=== PATIENT | male | born 1980 | race African-American/Black ===

== ENCOUNTER 2017-01-10 21:16 | Emergency (ER) | payer SELFPAY ==
[~2017-01-10] VITALS: Ht 167.6 cm; Wt 79.4 kg
[~2017-01-10 21:16] MED LIST: CIPR500T PO; CYCL-331 PO
[2017-01-10 21:37] VITALS: BP 137/87
--- NOTE | 2017-01-10 21:58 | PHYS DOC ---
Past History Past Medical History: Asthma Past Surgical History: No Surgical History Smoking: Cigarettes, Less than 1pk/day Alcohol Use: None Drug Use: None Adult General Chief Complaint Chief Complaint: DENTAL PROBLEM HPI HPI 36-year-old male presenting to the emergency department with right-sided " dental pain". He reports the pain and been present for the past 3 days. It is a sharp pain associated with mild swelling of the cheek. It is nonradiating moderate and without alleviating factors. Review of systems is negative for difficulty swallowing stridor fevers neck pain or chest pain. All other review of systems is negative unless otherwise noted in history of present illness. Review of Systems Review of Systems SEE ABOVE. Allergies Allergies Allergies Coded Allergies Type Severity Reaction Last Updated Verified No Known Drug Allergies 11/27/13 No Physical Exam Physical Exam Constitutional: Well developed, well nourished, no acute distress, non-toxic appearance. [] HENT: Normocephalic, atraumatic, bilateral external ears normal, oropharynx moist, no oral exudates, nose normal. Patient has poor dentition in the top back part of his right teeth. No periapical abscesses present. Mild swelling of the cheek. Unable to express drainage from Stensen's duct. The facial soft tissue is not warm to touch and is without erythema. No swelling of the tongue stridor. Patient is resting comfortably able to swallow secretions. No CHEF SAUCIER present. Normal range of motion of the neck. Eyes: PERRLA, EOMI, conjunctiva normal, no discharge. Neck: Normal range of motion, no tenderness, supple, no stridor. [] Cardiovascular:Heart rate regular rhythm, no murmur Lungs & Thorax: Bilateral breath sounds clear to auscultation [] Abdomen: Bowel sounds normal, soft, no tenderness, no masses, no pulsatile masses. Skin: Warm, dry, no erythema, no rash. [] Back: No tenderness, no CVA tenderness. [] Extremities: No tenderness, no cyanosis, no clubbing, ROM intact, no edema. Neurologic: Alert and oriented X 3, normal motor function, normal sensory function, no focal deficits noted. [] Psychologic: Affect normal, judgement normal, mood normal. EKG EKG [] Radiology/Procedures Radiology/Procedures [] Course & Med Decision Making Course & Med Decision Making Pertinent Labs and Imaging studies reviewed. (See chart for details) [] 36-year-old male presenting to the emergency department with tooth pain and cheek swelling. Differential diagnosis included sialolithiasis versus dental pain. Vital signs afebrile. Patient is well-appearing. He is provided oral pain medications and I instructed him to use sialogogues such as lemon candies. He was provided oral pain medications and subsequently discharged home to follow- up with his PCP and a dentist. They were to return if their symptoms worsened or if they were concerned for any reason. [id number] discharge instructions and return precautions were given. Patient's questions were answered to their satisfaction. Patient is comfortable plan. Dragon Disclaimer Dragon Disclaimer This chart was dictated in whole or in part using Voice Recognition software in a busy, high-work load, and often noisy Emergency Department environment. It may contain unintended and wholly unrecognized errors or omissions. Departure Departure: Impression: Primary Impression: Pain, dental Disposition: 01 HOME, SELF-CARE Condition: STABLE Referrals: PCP,NO (PCP) Patient Instructions: Dental Pain Additional Instructions: Thank you for allowing us to participate in your care today. Followup with your primary care physician in 3 days if your symptoms do not improve. If you do not have a primary care provider you can ask for a list of our primary care providers. Return to the emergency department you have any new or concerning findings. This should be evaluated by the primary care physician and any necessary consulting services for continued management within a few days after discharge. Return to emergency room if you have any new or concerning symptoms including but not limited to fever, chills, nausea, vomiting, intractable pain, any new rashes, chest pain, shortness of air, uncontrolled bleeding, difficulty breathing, and/or vision loss. You may have been prescribed medication that can change in your level of thinking and ability to operate machinery. These medications include hydrocodone and Ativan. Also, Benadryl has been known to do this as well. Be sure to check with your pharmacist and ask if the medications you've prescribed can affect your level of consciousness. I recommend not operating heavy machinery or driving while on medication such as these. Scripts Morphine Sulfate (MORPHINE SULFATE) 15 Mg Tablet 1 TAB PO PRN Q8HRS Y for SEVERE PAIN, #4 TAB Be careful as this medication may make you sleepy or drowsy. Do not drive or operate heavy machinery on this medication. Be sure to ask the pharmacist about other side effects that can exist such as constipation. Prov: SHAWN BROOKS MD 01/10/17 SHAWN BROOKS MD January 10, 2017 21:58
[2017-01-10] MEDS ORDERED: MORP15TA PO (22:07)
== END 2017-01-10 22:14 | disposition home or self-care (01) ==
LOC: ER 21:18
DX: K08.89 Other specified disorders of teeth and supporting structures (principal); J45.909 Unspecified asthma, uncomplicated; F17.210 Nicotine dependence, cigarettes, uncomplicated
CPT/HCPCS: 99283

== ENCOUNTER 2017-01-17 22:30 | Emergency (ER) | payer SELFPAY ==
[~2017-01-17] VITALS: Ht 167.6 cm; Wt 79.4 kg
[~2017-01-17 22:30] MED LIST changes: +MORP15TA PO
[2017-01-17 22:41] VITALS: BP 147/87
--- NOTE | 2017-01-17 22:57 | PHYS DOC ---
Past History Past Medical History: Asthma, Seizure Past Surgical History: No Surgical History Smoking: Cigarettes, Less than 1pk/day Alcohol Use: Occasionally Drug Use: None Adult General Chief Complaint Chief Complaint: LOWER BACK PAIN OR INJURY HPI HPI 36-year-old gentleman presenting with low back pain after lifting heavy objects at work. His pain is sharp on the right side radiating down his right leg. It is moderate and without alleviating factors. He denies fecal or urinary incontinence. He denies perineal paresthesias or leg weakness. Review of systems is negative for fevers chills nausea vomiting diarrhea. All other review of systems is negative unless otherwise noted in history of present illness. Review of Systems Review of Systems SEE ABOVE. Allergies Allergies Allergies Coded Allergies Type Severity Reaction Last Updated Verified No Known Drug Allergies 11/27/13 No Physical Exam Physical Exam Constitutional: Well developed, well nourished, no acute distress, non-toxic appearance. [] HENT: Normocephalic, atraumatic, bilateral external ears normal, oropharynx moist, no oral exudates, nose normal. [] Eyes: PERRLA, EOMI, conjunctiva normal, no discharge. [] Neck: Normal range of motion, no tenderness, supple, no stridor. [] Cardiovascular:Heart rate regular rhythm, no murmur [] Lungs & Thorax: Bilateral breath sounds clear to auscultation [] Abdomen: Bowel sounds normal, soft, no tenderness, no masses, no pulsatile masses. [] Skin: Warm, dry, no erythema, no rash. [] Back: Mild tenderness along the right musculature without midline tenderness., no CVA tenderness. No step-offs abrasions or ecchymosis present. No fluctuant masses were present. Extremities: No tenderness, no cyanosis, no clubbing, ROM intact, no edema. [] Neurologic: Alert and oriented X 3, normal motor function, normal sensory function, no focal deficits noted. [] 5 out of 5 strength in the lower extremities with 2+ deep tendon reflexes. Psychologic: Affect normal, judgement normal, mood normal. [] EKG EKG [] Radiology/Procedures Radiology/Procedures [] Course & Med Decision Making Course & Med Decision Making Pertinent Labs and Imaging studies reviewed. (See chart for details) [] 36-year-old gentleman presenting with musculoskeletal low back pain after heavy lifting. Clinical presentation not suggestive of cauda equina syndrome. Patient's pain was treated in the emergency department. The patient was then discharged home in stable condition to follow up with their primary care physician over the next 2-3 days. They were to return if their symptoms worsened or if they were concerned for any reason. [id number] discharge instructions and return precautions were given. Patient's questions were answered to their satisfaction. Patient is comfortable plan. Dragon Disclaimer Dragon Disclaimer This chart was dictated in whole or in part using Voice Recognition software in a busy, high-work load, and often noisy Emergency Department environment. It may contain unintended and wholly unrecognized errors or omissions. Departure Departure: Impression: Primary Impression: Back pain Disposition: HOME, SELF-CARE Condition: STABLE Referrals: PCP,KRANTHI (PCP) ISIDRO RODRIGUEZ MD Patient Instructions: Back Exercises, Back Injury Prevention, Back Pain, Adult Additional Instructions: Thank you for allowing us to participate in your care today. Followup with your primary care physician in 3 days if your symptoms do not improve. If you do not have a primary care provider you can ask for a list of our primary care providers. Return to the emergency department you have any new or concerning findings. This should be evaluated by the primary care physician and any necessary consulting services for continued management within a few days after discharge. Return to emergency room if you have any new or concerning symptoms including but not limited to fever, chills, nausea, vomiting, intractable pain, any new rashes, chest pain, shortness of air, uncontrolled bleeding, difficulty breathing, and/or vision loss. You may have been prescribed medication that can change in your level of thinking and ability to operate machinery. These medications include hydrocodone and Ativan. Also, Benadryl has been known to do this as well. Be sure to check with your pharmacist and ask if the medications you've prescribed can affect your level of consciousness. I recommend not operating heavy machinery or driving while on medication such as these. Scripts Morphine Sulfate (MORPHINE SULFATE) 15 Mg Tablet 1 TAB PO PRN Q8HRS Y for SEVERE PAIN, #4 TAB Be careful as this medication may make you sleepy or drowsy. Do not drive or operate heavy machinery on this medication. Be sure to ask the pharmacist about other side effects that can exist such as constipation. Prov: SHAWN BROOKS MD 01/17/17 SHAWN BROOKS MD January 17, 2017 22:56
[2017-01-17] MEDS ORDERED: MORP15TA PO (23:00)
[2017-01-17] MEDS ORDERED: MORPHINE IR 15 MG TABLET PO ONE (23:00)
[2017-01-17] MEDS ORDERED: ACETAMINOPHEN 325 MG TABLET PO ONE (23:30)
[2017-01-17] MEDS ORDERED: HYDROcodone/APAP 5/325MG 1 TAB TABLET PO ONE (23:30)
== END 2017-01-17 23:27 | disposition home or self-care (01) ==
LOC: ER 22:30
DX: M54.5 Low back pain (principal); J45.909 Unspecified asthma, uncomplicated; F17.210 Nicotine dependence, cigarettes, uncomplicated
CPT/HCPCS: 99283

== ENCOUNTER 2017-03-06 06:17 | Emergency (ER) | payer SELFPAY ==
[~2017-03-06] VITALS: Ht 167.6 cm; Wt 79.4 kg
[2017-03-06 06:25] VITALS: BP 138/81
--- NOTE | 2017-03-06 06:58 | PHYS DOC ---
General Chief Complaint: HEMORRHOIDS Stated Complaint: HEMMORROIDS X 2 DAYS Time Seen by MD: 06:39 Source: patient Exam Limitations: no limitations Problems: History of Present Illness Initial Comments Patient is a 36-year-old male who comes to the ED complaining of hemorrhoid pain. Patient states for the past 2 days he's had a painful hemorrhoid. He says he's had these in the past and they have resolved spontaneously. He states the pain is 10 out of 10 when trying to sit, he denies blood in his stools, constipation , straining, or heavy lifting. He has no pain at rest, but does say this has been keeping him up and is requesting something for pain so he can sleep. He denies fever chills sweats or myalgias he denies history of irritable bowel syndrome or family history of colon cancer. He denies unexplained weight loss and rectal trauma. Qhyu-[id number] Tylenol not helping. Patient continues to smoke cigarettes and does not have a primary care physician. Timing/Duration: getting worse (2 days) Severity: severe Modifying Factors: worse with movement, improves with rest Associated Symptoms: other Allergies: Coded Allergies: No Known Drug Allergies (Unverified , 11/27/13) Past Medical History Medical History: no pertinent history Surgical History: no surgical history Family History Significant Family History: no pertinent family hx Social History Smoker: cigarettes Alcohol: rarely Drugs: none Review of Systems Constitutional: denies chills, denies fever Respiratory: denies cough, denies shortness of breath Cardiovascular: denies chest pain, denies palpitations Gastrointestinal: see HPI, denies nausea, denies vomiting Genitourinary: denies dysuria, denies frequency, denies hematuria Musculoskeletal: denies back pain, denies joint swelling, denies neck pain Skin: see HPI Psychiatric/Neurological: denies headache, denies numbness, denies paresthesia Physical Exam General Appearance: WD/WN, no apparent distress Eyes: bilateral eye normal inspection, bilateral eye PERRL, bilateral eye EOMI Ear, Nose, Throat: hearing grossly normal, normal ENT inspection Neck: non-tender, supple Respiratory: normal breath sounds, no respiratory distress Rectal: normal rectal tone, hemorrhoids (2 cm thrombosed tender hemorrhoid at the 3 o'clock position there is no anal obstruction or active bleeding.) Back: no vertebral tenderness, CVA tenderness (R) 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 I advised him this is the treatment of choice the patient is requesting an alternative treatment plan. I discussed conservative treatment with diet and lifestyle modifications as well as topical steroids and analgesics. Patient expressed agreement and understanding of the treatment plan, he was advised to discontinue tobacco abuse. Departure Time of Disposition: 06:54 Disposition: 01 HOME, SELF-CARE Diagnosis: thrombosed external hemorrhoid Condition: STABLE Patient Instructions: Hemorrhoids Additional Instructions: Per your request please review the patient education materials given to you by the emergency department staff. Warm sits baths 15 minutes 3 times daily and after each bowel movement. High-fiber diet, 30 g daily. Increase fresh fruit and vegetable intake as well as bran. 10-12 glasses of water daily. Oylo-osv-qfpemrv stool softeners such as Colace. No heavy lifting or straining with bowel movements. Prescription: TILA-Max for discomfort, AnaMantle HC to reduce swelling. Uepe-akh-wfyanxn Tylenol and ibuprofen as needed. Follow-up with your doctor next week for recheck. Return to the ED with new or changing symptoms. ROBERTA MEDRANO DO Mar 06, 2017 06:58
== END 2017-03-06 07:03 | disposition home or self-care (01) ==
LOC: ER 06:17
DX: K64.5 Perianal venous thrombosis (principal); F17.210 Nicotine dependence, cigarettes, uncomplicated
CPT/HCPCS: 99282

== ENCOUNTER 2018-04-20 07:31 | Emergency (ER) | payer SELFPAY ==
[~2018-04-20] VITALS: Ht 170.2 cm; Wt 85.7 kg
[2018-04-20 08:18] LABS: BASO % 1 % (0-3); EOS # 0.3 x10^3/uL (0.0-0.7); EOS % 6 % (0-3); HEMATOCRIT 43.8 % (39.0-53.0); HEMOGLOBIN 14.9 g/dL (13.0-17.5); LYMPH # 2.2 x10^3/uL (1.0-4.8); LYMPH % 40 % (24-48); MEAN CORPUSCULAR HEMOGLOBIN 32 pg (25-35); MEAN CORPUSCULAR HGB CONC 34 g/dL (31-37); MEAN CORPUSCULAR VOLUME 94 fL (79-100); MONO # 0.5 x10^3/uL (0.0-1.1); MONO % 8 % (0-9); NEUT # 2.5 x10^3uL (1.8-7.7); NEUT % 45 % (31-73); PLATELET COUNT 188 x10^3/uL (140-400); RED BLOOD COUNT 4.67 x10^6/uL (4.30-5.70); RED CELL DISTRIBUTION WIDTH 14.7 % (11.5-14.5); WHITE BLOOD COUNT 5.6 x10^3/uL (4.0-11.0)
--- NOTE | 2018-04-20 08:27 | RAD ---
CHEST PA LATERAL History: chest pain Comparison: November 27, 2013 Findings: 2 views of the chest are submitted. There is no infiltrate, pneumothorax, or effusion. The cardiac silhouette is within normal limits in size. The trachea is in the midline. No acute osseous abnormality is identified. Impression: 1. There is no radiographic evidence of acute cardiopulmonary disease. Electronically signed by: Martínez Darby MD (04/20/2018 8:24 AM) [facility]
[2018-04-20 08:42] LABS: ALBUMIN 3.8 g/dL (3.4-5.0); ALBUMIN/GLOBULIN RATIO 1.1 (1.0-1.7); CALCIUM 8.9 mg/dL (8.5-10.1); CREATININE 1.1 mg/dL (0.7-1.3); GFR 92.2; TOTAL BILIRUBIN 0.5 mg/dL (0.2-1.0); TOTAL PROTEIN 7.3 g/dL (6.4-8.2)
[2018-04-20 08:42] LABS: BARBITURATES NEG (NEG); BENZODIAZEPINES NEG (NEG); CANNABINOIDS NEG (NEG); COCAINE NEG (NEG); METHADONE NEG (NEG); OPIATES NEG (NEG); PHENCYCLIDINE NEG (NEG)
[2018-04-20 08:44] LABS: AMPHETAMINE/METHAMPHETAMINE NEG (NEG)
--- NOTE | 2018-04-20 08:57 | EKG ---
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
[2018-04-20] MEDS ORDERED: NAPR-683 PO (08:58)
--- NOTE | 2018-04-20 08:59 | PHYS DOC ---
Past History Past Medical History: Asthma, Seizure Past Surgical History: No Surgical History Smoking: Cigarettes, Less than 1pk/day Alcohol Use: Rarely Drug Use: None Adult General Chief Complaint Chief Complaint: CHEST PAIN [facility] HPI Patient is a 37 year old male who presents with complaining of chest pain. Patient states he woke up at 7 AM and had left side sharp chest pain with radiation to left arm as an intermittent pain that last about 20 minutes and repeated several times with mild shortness of breath. Patient denies dizziness, palpitation, nausea and vomiting, fever and chills and cough, injury. Patient states he has had episodes of chest pain while he was at work today was the first time he had pain while he was at home. Patient states he was moving and lifting boxes at home recently. Patient denies using drugs and alcohol and states he smokes less than 1 pack cigarettes a day. Patient had family history of coronary artery disease and denies other cardiac risk factors. Review of Systems Review of Systems Constitutional: Denies fever or chills [] Eyes: Denies change in visual acuity, redness, or eye pain [] HENT: Denies nasal congestion or sore throat [] Respiratory: Denies cough or shortness of breath [] Cardiovascular: No additional information not addressed in HPI [] GI: Denies abdominal pain, nausea, vomiting, bloody stools or diarrhea [] : Denies dysuria or hematuria [] Musculoskeletal: Denies back pain or joint pain [] Integument: Denies rash or skin lesions [] Neurologic: Denies headache, focal weakness or sensory changes [] Endocrine: Denies polyuria or polydipsia [] All other systems were reviewed and found to be within normal limits, except as documented in this note. Current Medications Current Medications Current Medications Medications (Trade) Dose Ordered Sig/[facility] Start Time Stop Time Status Last Admin Dose Admin Ketorolac Tromethamine (Toradol 30mg Vial) 30 mg 1X ONCE 04/20/18 09:00 04/20/18 09:01 04/20/18 08:44 30 MG Allergies Allergies Allergies Coded Allergies Type Severity Reaction Last Updated Verified No Known Drug Allergies 11/27/13 No Physical Exam Physical Exam Constitutional: Well developed, well nourished, mild distress, non-toxic appearance. [] HENT: Normocephalic, atraumatic, oropharynx moist, no oral exudates, nose normal. [] Eyes: PERRLA, EOMI, conjunctiva normal, no discharge. [] Neck: Normal range of motion, no tenderness, supple, no stridor. [] Cardiovascular:Heart rate regular rhythm, no murmur [] Lungs & Thorax: Bilateral breath sounds clear to auscultation [] Abdomen: Bowel sounds normal, soft, no tenderness, no masses, no pulsatile masses. [] Skin: Warm, dry, no erythema, no rash. [] Back: No tenderness, no CVA tenderness. [] Extremities: No tenderness, no cyanosis, no clubbing, ROM intact, no edema. [] Neurologic: Alert and oriented X 3, normal motor function, normal sensory function, no focal deficits noted. [] Psychologic: Affect anxious, judgement normal, mood normal. [] Current Patient Data Vital Signs Vital Signs Date Time Temp Pulse Resp B/P (MAP) Pulse Ox O2 Delivery O2 Flow Rate FiO2 04/20/18 08:37 84 18 132/78 (96) 99 Room Air 04/20/18 07:31 98.2 Lab Results Laboratory Tests Test 04/20/18 08:05 04/20/18 08:20 White Blood Count 5.6 x10^3/uL (4.0-11.0) Red Blood Count 4.67 x10^6/uL (4.30-5.70) Hemoglobin 14.9 g/dL (13.0-17.5) Hematocrit 43.8 % (39.0-53.0) Mean Corpuscular Volume 94 fL (79-100) Mean Corpuscular Hemoglobin 32 pg (25-35) Mean Corpuscular Hemoglobin Concent 34 g/dL (31-37) Red Cell Distribution Width 14.7 % (11.5-14.5) H Platelet Count 188 x10^3/uL (140-400) Neutrophils (%) (Auto) 45 % (31-73) Lymphocytes (%) (Auto) 40 % (24-48) Monocytes (%) (Auto) 8 % (0-9) Eosinophils (%) (Auto) 6 % (0-3) H Basophils (%) (Auto) 1 % (0-3) Neutrophils # (Auto) 2.5 x10^3uL (1.8-7.7) Lymphocytes # (Auto) 2.2 x10^3/uL (1.0-4.8) Monocytes # (Auto) 0.5 x10^3/uL (0.0-1.1) Eosinophils # (Auto) 0.3 x10^3/uL (0.0-0.7) Basophils # (Auto) 0.0 x10^3/uL (0.0-0.2) Sodium Level 145 mmol/L (136-145) Potassium Level 4.0 mmol/L (3.5-5.1) Chloride Level 107 mmol/L (98-107) Carbon Dioxide Level 29 mmol/L (21-32) Anion Gap 9 (6-14) Blood Urea Nitrogen 13 mg/dL (8-26) Creatinine 1.1 mg/dL (0.7-1.3) Estimated GFR (Cockcroft-Gault) 92.2 BUN/Creatinine Ratio 12 (6-20) Glucose Level 113 mg/dL (70-99) H Calcium Level 8.9 mg/dL (8.5-10.1) Magnesium Level 2.0 mg/dL (1.8-2.4) Total Bilirubin 0.5 mg/dL (0.2-1.0) Aspartate Amino Transferase (AST) 14 U/L (15-37) L Alanine Aminotransferase (ALT) 25 U/L (16-63) Alkaline Phosphatase 75 U/L (46-116) Creatine Kinase 216 U/L (39-308) Creatine Kinase MB (Mass) 1.4 ng/mL (0.0-3.6) Creatine Kinase MB Relative Index 0.6 % (0-4) Troponin I Quantitative < 0.017 ng/mL (0-0.055) Total Protein 7.3 g/dL (6.4-8.2) Albumin 3.8 g/dL (3.4-5.0) Albumin/Globulin Ratio 1.1 (1.0-1.7) Lipase 80 U/L (73-393) Urine Opiates Screen Neg (NEG) Urine Methadone Screen Neg (NEG) Urine Barbiturates Neg (NEG) Urine Phencyclidine Screen Neg (NEG) Urine Amphetamine/Methamphetamine Neg (NEG) Urine Benzodiazepines Screen Neg (NEG) Urine Cocaine Screen Neg (NEG) Urine Cannabinoids Screen Neg (NEG) Urine Ethyl Alcohol Neg (NEG) EKG EKG EKG interpreted by me. EKG at 0 745 showed normal sinus rhythm at rate of 91, rightward axis,[ incomplete right bundle branch block with no acute ST and T- wave abnormalities] Radiology/Procedures Radiology/Procedures [][address] [address] IMAGING REPORT Signed PATIENT: BROCK CONSTANTINO ACCOUNT: [id number] : 1980 LOCATION: ER AGE: 37 SEX: M EXAM STATUS: REG ER ORD. PHYSICIAN: EMILIA HERNANDEZ MD REASON: chest pain PROCEDURE: CHEST PA & LATERAL CHEST PA LATERAL History: chest pain Comparison: November 27, 2013 Findings: 2 views of the chest are submitted. There is no infiltrate, pneumothorax, or effusion. The cardiac silhouette is within normal limits in size. The trachea is in the midline. No acute osseous abnormality is identified. Impression: 1. There is no radiographic evidence of acute cardiopulmonary disease. Electronically signed by: Robert Jama MD (04/20/2018 8:24 AM) [facility] DICTATED AND SIGNED BY: ROBERT JAMA MD DATE: 04/20/18822 CC: EMILIA HERNANDEZ MD; PCP,NO ~ Course & Med Decision Making Course & Med Decision Making Pertinent Labs and Imaging studies reviewed. (See chart for details) Evaluation of patient in ER showed 37-year-old male patient with complaining of intermittent episodes of left-sided chest pain. Patient had unremarkable physical exam and EKG and labs and felt better with Toradol. Plan discharge patient home to diagnose of musculoskeletal chest pain. [] Dragon Disclaimer Dragon Disclaimer This electronic medical record was generated, in whole or in part, using a voice recognition dictation system. Departure Departure: Impression: Primary Impression: Musculoskeletal chest pain Additional Impressions: Tobacco abuse Tobacco abuse counseling Disposition: HOME, SELF-CARE (at 0857) Condition: IMPROVED Referrals: PCP,KRANTHI (PCP) Patient Instructions: Chest Wall Pain, Smoking Cessation, Tips For Success Additional Instructions: Drink plenty of liquids Follow-up with your primary care physician in 3-5 days Return to ER if not getting better Scripts Naproxen (NAPROSYN) 500 Mg Tablet 1 TAB PO BID, #20 TAB Prov: EMILIA HERNANDEZ MD 04/20/18 Problem Qualifiers EMILIA HERNANDEZ MD Apr 20, 2018 08:59
[2018-04-20] MEDS ORDERED: KETOROLAC 30 MG/ML VIAL. IV ONE (09:00)
[2018-04-20 09:05] VITALS: BP 106/38
== END 2018-04-20 09:05 | disposition home or self-care (01) ==
LOC: ER 07:31
DX: R07.89 Other chest pain (principal); F17.210 Nicotine dependence, cigarettes, uncomplicated; J45.909 Unspecified asthma, uncomplicated; Z71.6 Tobacco abuse counseling
CPT/HCPCS: 36415; 71046; 80053; 80307; 82553; 83690; 83735; 84484; 85025; 93005; 96374; 99285; J1885; G0479

== ENCOUNTER 2019-04-01 18:20 | Emergency (ER) | payer SELFPAY ==
[~2019-04-01] VITALS: Ht 167.6 cm; Wt 79.7 kg
[~2019-04-01 18:20] MED LIST changes: +NAPR-683 PO
--- NOTE | 2019-04-01 18:34 | ED.ADGEN ---
Past History Past Medical History: Asthma, Seizure Past Surgical History: No Surgical History Smoking: Cigarettes, Less than 1pk/day Alcohol Use: Rarely Drug Use: None Adult General Chief Complaint Chief Complaint ".. I think I got a spider bite on my Lt cheek... this place popped up 3 days ago.. and not getting better..." HPI HPI Patient is a 38 year old male who presents with above hx and complaints skin lesions/insect bite left cheek. Patient has a 1-2 cm area of edema and inflammation on left cheek. No adenopathy. No striations. Patient denies any history of immunosuppression. Patient denies any trauma. Patient does not remember his last tetanus. No history of travel or specific ill contacts. Review of Systems Review of Systems Constitutional: Denies fever or chills [] Eyes: Denies change in visual acuity, redness, or eye pain [] HENT: Denies nasal congestion or sore throat []complaints of left facial lesion Respiratory: Denies cough or shortness of breath [] Cardiovascular: No additional information not addressed in HPI [] GI: Denies abdominal pain, nausea, vomiting, bloody stools or diarrhea [] : Denies dysuria or hematuria [] Musculoskeletal: Denies back pain or joint pain [] Integument: Denies rash or skin lesions [] Neurologic: Denies headache, focal weakness or sensory changes [] Endocrine: Denies polyuria or polydipsia [] All other systems were reviewed and found to be within normal limits, except as documented in this note. Family History Family History Noncontributory Current Medications Current Medications Current Medications Medications (Trade) Dose Ordered Sig/Matty Start Time Stop Time Status Last Admin Dose Admin Diphtheria/ Tetanus/Acell Pertussis (Boostrix) 0.5 ml ONCE ONCE 04/01/19 19:00 04/01/19 19:22 DC 04/01/19 19:35 0.5 ML Trimethoprim/ Sulfamethoxazole (Bactrim Ds) 1 tab 1X ONCE 04/01/19 19:00 04/01/19 19:22 DC 04/01/19 19:32 1 TAB Allergies Allergies Allergies Coded Allergies Type Severity Reaction Last Updated Verified No Known Drug Allergies 11/27/13 No Physical Exam Physical Exam Constitutional: Well developed, well nourished, [id number] acute distress, non-toxic appearance. [] HENT: Normocephalic, atraumatic, bilateral external ears normal, oropharynx moist, no oral exudates, nose normal. []Left facial lesion Eyes: PERRLA, EOMI, conjunctiva normal, no discharge. [] Neck: Normal range of motion, no tenderness, supple, no stridor. [] Cardiovascular:Heart rate regular rhythm, no murmur [] Lungs & Thorax: Bilateral breath sounds equal at apex with scattered wheezes on auscultation Abdomen: Bowel sounds normal, soft, no tenderness, no masses, no pulsatile masses. [] Skin: Warm, dry, no erythema, no rash. [] Skin lesion as per history of present illness on left side of face Back: No tenderness, no CVA tenderness. [] Extremities: No tenderness, no cyanosis, no clubbing, ROM intact, no edema. [] Neurologic: Alert and oriented X 3, normal motor function, normal sensory function, no focal deficits noted. [] Psychologic: Affect anxious judgement normal, mood normal. [] EKG EKG [] Radiology/Procedures Radiology/Procedures [] Course & Med Decision Making Course & Med Decision Making Pertinent Labs and Imaging studies reviewed. (See chart for details) Patient massage area of inflammation with Polysporin 4 times a day. Patient take Bactrim DS twice a day. Patient use moist salt compresses. 4 times a day. Follow-up primary care. Return if any concerns. [] Final Impression Final Impression 1. Insect bite with cellulitis[] Dragon Disclaimer Dragon Disclaimer This electronic medical record was generated, in whole or in part, using a voice recognition dictation system. Discharge Summary Visit Information Final Diagnosis Problems Medical Problems: (1) Cellulitis Status: Acute Brief Hospital Course Allergies Allergies Coded Allergies Type Severity Reaction Last Updated Verified No Known Drug Allergies 11/27/13 No Brief Hospital Course Mr. Morales is a 38 old male who presented with Lt. facial insect bite with cellulitis Discharge Information Condition at Discharge: Stable Disposition/Orders: D/C to Home Dischare Medications Current Medications Trimethoprim/ Sulfamethoxazole (Bactrim Ds) 1 tab 1X ONCE PO Last administered on 04/01/19at 19:32; Admin Dose 1 TAB; Start 04/01/19 at 19:00; Stop 04/01/19 at 19:22; Status DC Diphtheria/ Tetanus/Acell Pertussis (Boostrix) 0.5 ml ONCE ONCE VAX IM Last administered on 04/01/19at 19:35; Admin Dose 0.5 ML; Start 04/01/19 at 19:00; Stop 04/01/19 at 19:22; Status DC Active Scripts Active Bactrim Ds Tablet (Sulfamethoxazole/Trimethoprim) 1 Each Tablet 1 Tab PO BID Naprosyn (Naproxen) 500 Mg Tablet 1 Tab PO BID Morphine Sulfate 15 Mg Tablet 1 Tab PO PRN Q8HRS PRN Be careful as this medication may make you sleepy or drowsy. Do not drive or operate heavy machinery on this medication. Be sure to ask the pharmacist about other side effects that can exist such as constipation. Morphine Sulfate 15 Mg Tablet 1 Tab PO PRN Q8HRS PRN Be careful as this medication may make you sleepy or drowsy. Do not drive or operate heavy machinery on this medication. Be sure to ask the pharmacist about other side effects that can exist such as constipation. Ciprofloxacin Hcl 500 Mg Tablet 1 Tab PO BID Reported Cyclobenzaprine Hcl 10 Mg Tablet 10 Mg PO TID PRN No Known Medications Prior To Admisstion (Info) Each Dragon Disclaimer This chart was dictated in whole or in part using Voice Recognition software in a busy, high-work load, and often noisy Emergency Department environment. It ma y contain unintended and wholly unrecognized errors or omissions. BUCKY TEJEDA MD Apr 01, 2019 18:34
[2019-04-01] MEDS ORDERED: SULF1TAB24 PO (18:55)
[2019-04-01] MEDS ORDERED: DIPHTH,PERTUSS(ACELL),TET TOX 0.5 ML DISP.SYRIN. VAX IM ONE (19:00)
[2019-04-01] MEDS ORDERED: SMZ/TMP 800/160MG TABLET. PO ONE (19:00)
== END 2019-04-01 19:37 | disposition home or self-care (01) ==
LOC: ER 18:20
DX: S00.86XA Insect bite (nonvenomous) of other part of head, initial encounter (principal); L03.211 Cellulitis of face; J45.909 Unspecified asthma, uncomplicated; F17.210 Nicotine dependence, cigarettes, uncomplicated; W57.XXXA Bitten or stung by nonvenomous insect and other nonvenomous arthropods, initial encounter; Y93.89 Activity, other specified; Y92.89 Other specified places as the place of occurrence of the external cause; Y99.8 Other external cause status
CPT/HCPCS: 90471; 90715; 99283

== ENCOUNTER 2019-06-21 16:44 | Emergency (ER) | payer SELFPAY ==
[~2019-06-21] VITALS: Ht 167.6 cm; Wt 81.2 kg
[~2019-06-21 16:44] MED LIST changes: +SULF1TAB24 PO
[2019-06-21 16:53] VITALS: BP 156/107
--- NOTE | 2019-06-21 17:02 | PHYS DOC ---
Past History Past Medical History: Asthma, Seizure Past Surgical History: No Surgical History Smoking: Cigarettes, Less than 1pk/day Alcohol Use: Rarely Drug Use: None Adult General Chief Complaint Chief Complaint: RECTAL BLEED HPI HPI Patient is a 38-year-old male who presents with complaint of blood mixed with stool when he had a bowel movement earlier today. Patient states he has a history of hemorrhoids but never really saw this much blood in the past. He states that he has no pain in his rectum. He denies any chest pain or shortness of breath and denies any abdominal pain. He also denies any weakness.[] Review of Systems Review of Systems Constitutional: Denies fever or chills [] Respiratory: Denies cough or shortness of breath [] Cardiovascular: No additional information not addressed in HPI [] GI: Denies abdominal pain, nausea, vomiting or diarrhea. Admits to bloody stool. [] Neurologic: Denies headache, focal weakness or sensory changes [] All other systems were reviewed and found to be within normal limits, except as documented in this note. Allergies Allergies Allergies Coded Allergies Type Severity Reaction Last Updated Verified No Known Drug Allergies 11/27/13 No Physical Exam Physical Exam Constitutional: Well developed, well nourished, no acute distress, non-toxic appearance. [] HENT: Normocephalic, atraumatic, bilateral external ears normal, oropharynx moist, no oral exudates, nose normal. [] Eyes: PERRLA, EOMI, conjunctiva normal, no discharge. [] Neck: Normal range of motion, no tenderness, supple, no stridor. [] Cardiovascular: Regular rate and rhythm[] Lungs & Thorax: Bilateral breath sounds clear to auscultation [] Abdomen: Bowel sounds normal, soft, no tenderness. Rectal exam demonstrates fleshy, internal hemorrhoid with small amount of bright red blood. [] Skin: Warm, dry, no erythema, no rash. [] Extremities: No tenderness, no cyanosis, no clubbing, ROM intact, no edema. [] Neurologic: Alert and oriented X 3, no focal deficits noted. [] EKG EKG [] Radiology/Procedures Radiology/Procedures [] Course & Med Decision Making Course & Med Decision Making Pertinent Labs and Imaging studies reviewed. (See chart for details) [] Dragon Disclaimer Dragon Disclaimer This electronic medical record was generated, in whole or in part, using a voice recognition dictation system. Departure Departure: Impression: Primary Impression: Rectal bleeding Additional Impression: Internal hemorrhoid, bleeding Disposition: HOME, SELF-CARE Condition: STABLE Referrals: PCPKRANTHI (PCP) Patient Instructions: Hemorrhoids, Rectal Bleeding Problem Qualifiers GABBY REESE Jr. DO Jun 21, 2019 17:02
[2019-06-21 17:48] LABS: BASO % 1 % (0-3); EOS # 0.2 x10^3/uL (0.0-0.7); EOS % 3 % (0-3); HEMATOCRIT 45.8 % (39.0-53.0); HEMOGLOBIN 15.4 g/dL (13.0-17.5); LYMPH # 1.5 x10^3/uL (1.0-4.8); LYMPH % 31 % (24-48); MEAN CORPUSCULAR HEMOGLOBIN 33 pg (25-35); MEAN CORPUSCULAR HGB CONC 34 g/dL (31-37); MEAN CORPUSCULAR VOLUME 97 fL (79-100); MONO # 0.4 x10^3/uL (0.0-1.1); MONO % 9 % (0-9); NEUT # 2.7 x10^3uL (1.8-7.7); NEUT % 56 % (31-73); PLATELET COUNT 166 x10^3/uL (140-400); RED BLOOD COUNT 4.72 x10^6/uL (4.30-5.70); WHITE BLOOD COUNT 4.8 x10^3/uL (4.0-11.0)
[2019-06-21 17:55] LABS: ALBUMIN 3.8 g/dL (3.4-5.0); ALBUMIN/GLOBULIN RATIO 1.1 (1.0-1.7); CALCIUM 8.9 mg/dL (8.5-10.1); CREATININE 1.1 mg/dL (0.7-1.3); GFR 91.6; POTASSIUM 3.6 mmol/L (3.5-5.1); TOTAL BILIRUBIN 0.4 mg/dL (0.2-1.0); TOTAL PROTEIN 7.4 g/dL (6.4-8.2)
== END 2019-06-21 18:17 | disposition home or self-care (01) ==
LOC: ER 16:44
DX: K64.8 Other hemorrhoids (principal); K62.5 Hemorrhage of anus and rectum; J45.909 Unspecified asthma, uncomplicated; F17.210 Nicotine dependence, cigarettes, uncomplicated
CPT/HCPCS: 36415; 80053; 85025; 99284

== ENCOUNTER 2019-11-10 23:00 | Emergency (ER) | payer SELFPAY ==
[~2019-11-10] VITALS: Ht 167.6 cm; Wt 79.7 kg
[2019-11-10 23:20] VITALS: BP 138/82
--- NOTE | 2019-11-10 23:54 | PHYS DOC ---
Past History Past Medical History: Asthma, Seizure Past Surgical History: No Surgical History Smoking: Cigarettes, Less than 1pk/day Alcohol Use: Occasionally Drug Use: None Adult General Chief Complaint Chief Complaint: ABDOMINAL PAIN HPI HPI 38-year-old male presents with intermittent abdominal pain. The patient has been having a cramping abdominal pain off and on since August. Seems to be associated with stress. He presents today because he has had several episodes of dry heaving decreased ability to keep down solids or liquids. He is not eaten any food today. He did have a very loose stool this morning. He's never had abdominal surgery. He does not take any medications daily. He has had a history of intermittent constipation. He denies fever or chills. Review of Systems Review of Systems Constitutional: Denies fever or chills [] Eyes: Denies change in visual acuity, redness, or eye pain [] HENT: Denies nasal congestion or sore throat [] Respiratory: Denies cough or shortness of breath [] Cardiovascular: No additional information not addressed in HPI [] GI: LLQ abdominal pain, nausea, vomiting, diarrhea [] : Denies dysuria or hematuria [] Musculoskeletal: Denies back pain or joint pain [] Integument: Denies rash or skin lesions [] Neurologic: Denies headache, focal weakness or sensory changes [] Endocrine: Denies polyuria or polydipsia [] All other systems were reviewed and found to be within normal limits, except as documented in this note. Current Medications Current Medications Current Medications Medications (Trade) Dose Ordered Sig/Matty Start Time Stop Time Status Last Admin Dose Admin Ondansetron HCl (Zofran) 4 mg 1X ONCE 11/10/19 23:45 11/10/19 23:46 UNV Sodium Chloride 1,000 ml @ 1,000 mls/hr 1X ONCE 11/10/19 23:45 11/11/19 00:44 UNV Allergies Allergies Allergies Coded Allergies Type Severity Reaction Last Updated Verified No Known Drug Allergies 11/27/13 No Physical Exam Physical Exam Constitutional: Well developed, well nourished, no acute distress, non-toxic appearance. [] HENT: Normocephalic, atraumatic, bilateral external ears normal, oropharynx moist, no oral exudates, nose normal. [] Eyes: PERRLA, EOMI, conjunctiva normal, no discharge. [] Neck: Normal range of motion, no tenderness, supple, no stridor. [] Cardiovascular:Heart rate regular rhythm, no murmur [] Lungs & Thorax: Bilateral breath sounds clear to auscultation [] Abdomen: Bowel sounds normal, soft, mild LLQ tenderness, no masses, no pulsatile masses. [] Skin: Warm, dry, no erythema, no rash. [] Back: No tenderness, no CVA tenderness. [] Extremities: No tenderness, no cyanosis, no clubbing, ROM intact, no edema. [] Neurologic: Alert and oriented X 3, normal motor function, normal sensory function, no focal deficits noted. [] Psychologic: Affect normal, judgement normal, mood normal. [] EKG EKG [] Radiology/Procedures Radiology/Procedures [] Impressions: Supine abdomen. HISTORY: Abdominal pain, constipation Supine views were taken of the abdomen. Bowel pattern is normal. There is not an abnormal amount of stool in the colon. There is no bowel obstruction. There are no abnormal calcifications. Visualized lung bases are clear. IMPRESSION: 1. No bowel obstruction or acute finding in the abdomen. Electronically signed by: Atilio Banda MD (11/11/2019 12:07 AM) [id number] DICTATED AND SIGNED BY: ATILIO BANDA MD DATE: 11/11/19 0007 CC: RADHA GU DO; PCP,NO ~ Course & Med Decision Making Course & Med Decision Making Pertinent Labs and Imaging studies reviewed. (See chart for details) The patient's abdominal films are negative for acute findings. I have given him Zofran and a GI cocktail. I suspect this is stress-induced. I will discharge him with a prescription for Zofran and recommend he consider Pepcid or Zantac. Patient is stable for discharge at this time. [] Dragon Disclaimer Dragon Disclaimer This electronic medical record was generated, in whole or in part, using a voice recognition dictation system. Departure Departure: Impression: Primary Impression: Abdominal pain Disposition: HOME, SELF-CARE Condition: STABLE Referrals: PCP,NO (PCP) Patient Instructions: Abdominal Pain, [id number], Nausea and Vomiting, [id number] Scripts Ondansetron (ONDANSETRON ODT) 4 Mg Tab.rapdis 1 TAB PO PRN Q6-8HRS PRN for VOMITING, #16 TAB Prov: RADHA GU DO 11/11/19 Problem Qualifiers Primary Impression: Abdominal pain Abdominal location: left lower quadrant Qualified Codes: R10.32 - Left lower quadrant pain RADHA GU DO Nov 10, 2019 23:54
[2019-11-11] MEDS ORDERED: IV NORMAL SALINE 1,000ML 1,000 ML IV ONE
[2019-11-11] MEDS ORDERED: ONDANSETRON PF 4 MG/2 ML VIAL. IVP ONE
--- NOTE | 2019-11-11 00:10 | RAD ---
Supine abdomen. HISTORY: Abdominal pain, constipation Supine views were taken of the abdomen. Bowel pattern is normal. There is not an abnormal amount of stool in the colon. There is no bowel obstruction. There are no abnormal calcifications. Visualized lung bases are clear. IMPRESSION: 1. No bowel obstruction or acute finding in the abdomen. Electronically signed by: Leo Jorgensen MD (11/11/2019 12:07 AM) [id number]
[2019-11-11] MEDS ORDERED: LIDO:MAALOX 1:1 20 ML SINGLE DOSE. ONE (00:14)
[2019-11-11 00:26] LABS: BASO % 1 % (0-3); EOS # 0.1 x10^3/uL (0.0-0.7); EOS % 2 % (0-3); HEMATOCRIT 48.3 % (39.0-53.0); HEMOGLOBIN 16.2 g/dL (13.0-17.5); LYMPH # 2.6 x10^3/uL (1.0-4.8); LYMPH % 36 % (24-48); MEAN CORPUSCULAR HEMOGLOBIN 32 pg (25-35); MEAN CORPUSCULAR HGB CONC 34 g/dL (31-37); MEAN CORPUSCULAR VOLUME 96 fL (79-100); MONO # 0.7 x10^3/uL (0.0-1.1); MONO % 9 % (0-9); NEUT # 3.9 x10^3uL (1.8-7.7); NEUT % 53 % (31-73); PLATELET COUNT 191 x10^3/uL (140-400); RED BLOOD COUNT 5.03 x10^6/uL (4.30-5.70); RED CELL DISTRIBUTION WIDTH 14.4 % (11.5-14.5); WHITE BLOOD COUNT 7.3 x10^3/uL (4.0-11.0)
[2019-11-11] MEDS ORDERED: LIDO:MAALOX 1:1 20 ML SINGLE DOSE. PO ONE (00:30)
[2019-11-11 00:33] LABS: CALCIUM 9.8 mg/dL (8.5-10.1); CREATININE 1.2 mg/dL (0.7-1.3); GFR 82.9; POTASSIUM 3.4 mmol/L (3.5-5.1)
[2019-11-11 00:34] LABS: BACTERIA,URINE FEW /HPF (0-FEW); BILIRUBIN,URINE NEG (NEG); CLARITY,URINE CLEAR; COLOR,URINE AMBER; GLUCOSE,URINE NEG (NEG); NITRITE,URINE NEG (NEG); RBC,URINE OCC /HPF (0-2); SQUAMOUS EPITHELIAL CELL,UR OCC /LPF
[2019-11-11] MEDS ORDERED: ONDA4TAB12 PO (00:37)
[2019-11-11 00:39] LABS: ALBUMIN 4.5 g/dL (3.4-5.0); ALBUMIN/GLOBULIN RATIO 1.2 (1.0-1.7); TOTAL PROTEIN 8.3 g/dL (6.4-8.2)
== END 2019-11-11 01:22 | disposition home or self-care (01) ==
LOC: ER 23:00
DX: R10.32 Left lower quadrant pain (principal); R11.2 Nausea with vomiting, unspecified; R19.7 Diarrhea, unspecified; J45.909 Unspecified asthma, uncomplicated; F17.210 Nicotine dependence, cigarettes, uncomplicated
CPT/HCPCS: 36415; 74018; 80053; 81001; 85025; 96361; 96374; 99284-25

== ENCOUNTER 2020-05-23 17:13 | Emergency (ER) | payer SELFPAY ==
[~2020-05-23] VITALS: Ht 167.6 cm; Wt 79.5 kg
[~2020-05-23 17:13] MED LIST changes: +ONDA4TAB12 PO
--- NOTE | 2020-05-23 17:34 | PHYS DOC ---
Past History Past Medical History: Asthma, Seizure (ANDRAE CONNER DO) Past Surgical History: No Surgical History (ANDRAE CONNER DO) Smoking: Cigarettes, Less than 1pk/day Alcohol Use: Occasionally Drug Use: None (ANDRAE CONNER DO) General Adult EDM: Chief Complaint: COUGH HPI: HPI: The history was obtained from the patient. Patient is a 39-year-old male with PMH asthma who presents with a chief complaint of cough and sore throat. Patient states he is developed a dry cough over the past 24 hours. He does note some chest pain but only when he coughs. Does note some mild increase in shortness of breath. States he has a history of asthma but does not use an inhaler regularly. Denies any recent steroid usage. Denies any recent antibiotics. States he has tried [place] at home with minimal relief. 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 Denies syncope. Does note some mild pain with swallowing. Denies any pain with opening his mouth or dysphonia. Denies neck pain. Denies known exposure to coronavirus. Denies objective fever. No other complaints. (ANDRAE CONNER DO) Review of Systems: Review of Systems: Constitutional: Denies fever or chills Eyes: Denies change in visual acuity HENT: Positive for sore throat and congestion Respiratory: Positive for cough Cardiovascular: Denies chest pain or edema GI: Denies abdominal pain, nausea, vomiting, bloody stools or diarrhea : Denies dysuria Musculoskeletal: Denies back pain or joint pain Integument: Denies rash Neurologic: Denies headache, focal weakness or sensory changes Endocrine: Denies polyuria or polydipsia Lymphatic: Denies swollen glands Psychiatric: Denies depression or anxiety (ANDRAE CONNER DO) Heart Score: Risk Factors: Risk Factors: DM, Current or recent (<one month) smoker, HTN, HLP, family history of CAD, obesity. Risk Scores: Score 0 - 3: 2.5% MACE over next 6 weeks - Discharge Home Score 4 - 6: 20.3% MACE over next 6 weeks - Admit for Clinical Observation Score 7 - 10: 72.7% MACE over next 6 weeks - Early Invasive Strategies (ANDRAE CONNER DO) Allergies: Allergies: Allergies Coded Allergies Type Severity Reaction Last Updated Verified No Known Drug Allergies 11/27/13 No (ANDRAE CONNER DO) Physical Exam: PE: Constitutional: Well developed, well nourished, no acute distress, non-toxic appearance. [] HENT: Normocephalic, atraumatic, bilateral external ears normal, oropharynx m oist, no oral exudates, nose normal. [] Eyes: PERRLA, EOMI, conjunctiva normal, no discharge. [] Neck: Normal range of motion, no tenderness, supple, no stridor. [] Cardiovascular:Heart rate regular rhythm, no murmur [] Lungs & Thorax: Bilateral breath sounds clear to auscultation [] Abdomen: soft, no tenderness, no masses, no pulsatile masses. [] Skin: Warm, dry, no erythema, no rash. [] Back: No tenderness, no CVA tenderness. [] Extremities: No tenderness, no cyanosis, no clubbing, ROM intact, no edema. [] Neurologic: Alert and oriented X 3, normal motor function, normal sensory function, no focal deficits noted. [] Psychologic: Affect normal, judgement normal, mood normal. [] (ANDRAE CONNER DO) Current Patient Data: Labs: strep: neg COVID swab collected and pending (ELLE STALLWORTH DO) EKG: EKG: [] (ANDRAE CONNER DO) Radiology/Procedures: Radiology/Procedures: [] (ANDRAE CONNER DO) Radiology/Procedures: [place] [address] IMAGING REPORT Signed PATIENT: BROCK CONSTANTINO ACCOUNT: [id number] : 1980 LOCATION: ER AGE: 39 SEX: M EXAM STATUS: REG ER ORD. PHYSICIAN: ANDRAE CONNER DO REASON: cough PROCEDURE: CHEST AP ONLY Study: CR CHEST AP ONLY Indication: Cough. Comparison: 04/20/2018 Findings: Unremarkable cardiomediastinal silhouette and rogelio. No lobar consolidation, pleural effusion or pneumothorax. Grossly intact osseous structures. Impression: Unremarkable radiographic appearance of the chest. Electronically signed by: JOSE A MALHOTRA MD (05/23/2020 6:18 PM) [id number] DICTATED AND SIGNED BY: JOSE A MALHOTRA MD DATE: 05/23/201817 CC: PCPKRANTHI; ELLE STALLWORTH DO; ANDRAE CONNER DO ~ (ELLE STALLWORTH DO) Course & Med Decision Making: Course & Med Decision Making Pertinent Labs and Imaging studies reviewed. (See chart for details) [] Patient is an overall nontoxic and well-appearing 39-year-old male who presents with chief complaint of cough and sore throat. Initial vital signs unremarkable. Examination noted above. No wheezing noted on lung exam. Low suspicion for deep space neck infection based on exam and presentation. Although the patient does have a cough he is requesting rapid strep testing. This will be obtained. COVID swab will be obtained as well. Results pending. Chest x-ray pending at this time. I have signed out the patient's emergency department care to Dr. Stallworth. We discussed the history, physical exam findings, completed and pending laboratory results and imaging studies. We have also discussed the current treatment plan and expected clinical course. Please refer to chart for the patient's remaining emergency department course, final disposition, and clinical impression(s). (ANDRAE CONNER DO) Course & Med Decision Making 1800 Care of patient assumed at shift change. Awaiting CXR, COVID and strep results. 183 Stable, strep and CXR results unremarkable. Supportive care recommended. Rx for ibuprofen, tessalon perles and proair MDI. COVID results in about 24 hours. (ELLE STALLWORTH DO) Dragon Disclaimer: Dragon Disclaimer: This electronic medical record was generated, in whole or in part, using a voice recognition dictation system. (ANDRAE CONNER DO) Departure Departure: Impression: Primary Impression: Cough Additional Impressions: Sore throat Suspected COVID-19 virus infection Disposition: HOME/RESIDENCE PRIOR TO ADM Condition: STABLE Referrals: PCPKRANTHI (PCP) Additional Instructions: Please follow-up with your primary care physician in the next 2 to 3 days. You have been tested for or diagnosed with COVID-19. It is an infection caused by a new type of coronavirus. COVID-19 will cause cold-like or mild flu symptoms in most. It can cause more severe symptoms like problems breathing in some. There is no treatment for COVID-19. The body will clear the infection over time. Self-care will help to ease discomfort. Steps to Take: Self-Care Rest as needed. Healthy habits may help you feel better. Steps include: Choose healthy foods including fruits and vegetables. Drink water throughout the day. Get plenty of sleep each night. If you smoke, try to quit. It may ease breathing. Avoid alcohol. Keep Others Healthy The virus can spread to others. Droplets are released every time you sneeze or cough. The droplets can get into the mouth, nose, or eyes of people near you and lead to infection. To lower the chances of spreading COVID-19 to others: Stay at home until your doctor has said it is safe to leave. If you tested posi tive this will mean staying isolated until both of the following are true: At least 7 days have passed since the start of illness. You are free of fever for at least 72 hours without the use of medicine. During this time: - Avoid public areas, events, or transportation. Do not return to work or school until your doctor has said it is safe to do so. - Call ahead if you need to go to a medical center. Let them know you may have COVID-19. It will help them guide you where to go. They may also ask you to wear a facemask when you come to the office. - If you call for emergency medical services, let them know you may have COVID- 19. While at home: - Try to avoid close contact with others. Stay about 6 feet away. - If possible, spend most of your time in a separate room from others. - Use a face mask if you will be in close contact with others such as sharing a room or vehicle. - Have someone wipe down common surfaces in the home. Use household circuit court judge every day on areas like doorknobs, counters, or sinks. - Cough or sneeze into a tissue. Throw the tissue away right after use. If a tissue is not available, cough or sneeze into your elbow. - Wash your hands often. Wash them after sneezing or coughing. Use soap and water and wash for at least 20 seconds. Alcohol based hand cleaner window can be used if soap and water is not available. - Do not prepare food for others. Avoid sharing personal items like forks, spoons, or toothbrushes. - Avoid close contact with pets while you are sick. There is no evidence of the virus passing to pets. This is a safety step until more is known about this virus. Isolation can be frustrating. Social interaction can help. Keep in touch with friends and family through phone and tech options. You can still interact with others in your home, just keep a safe distance of about 6 feet. Follow-up: Your doctors office will check in with you to see if there are any changes in your health. You may be asked to keep track of symptoms to share with them. They will also let you know when you are clear to be in public again. Problems to Look Out For: Contact your doctor if your recovery is not going as you expect. Get emergency care if you have problems such as: - Trouble breathing - Nonstop chest pain or pressure - Changes in awareness, confusion, or problems waking - Lips or face have bluish color - Worsening of symptoms If you think you have an emergency, call for emergency medical services right away. As taken from [facility] Albuterol Sulfate (PROAIR HFA INHALER) 8.5 Gm Hfa.aer.ad 2 PUFF IH PRN Q4-6HRS PRN for wheezing for 21 Days, #1 INHALER 0 Refills as needed for wheezing Prov: ANDRAE CONNER DO 05/23/20 Benzonatate (TESSALON PERLE) 100 Mg Capsule 1 CAP PO TID for cough, #10 CAP Prov: ANDRAE CONNER DO 05/23/20 Ibuprofen (IBUPROFEN) 200 Mg Tablet 600 MG PO QIDPRN PRN for PAIN, #15 TAB Prov: ANDRAE CONNER DO 05/23/20 Justification of Admission: Justification of Admission: Justification of Admission Dx: N/A (ANDRAE CONNER DO) Justification of Admission Dx: N/A (ELLE STALLWORTH DO) ANDRAE CONNER DO May 23, 2020 17:34 ELLE STALLWORTH DO May 23, 2020 18:17
[2020-05-23] MEDS ORDERED: BENZONATATE 100 MG CAPSULE. PO ONE (17:45)
[2020-05-23] MEDS ORDERED: IBUPROFEN 600 MG TABLET. PO ONE (17:45)
[2020-05-23] MEDS ORDERED: ALBU2.5V8 IH (18:09)
[2020-05-23] MEDS ORDERED: BENZ100C PO (18:09)
[2020-05-23] MEDS ORDERED: IBUP-1673 PO (18:09)
[2020-05-23 18:20] VITALS: BP 148/72
--- NOTE | 2020-05-23 18:21 | RAD ---
Study: CR CHEST AP ONLY Indication: Cough. Comparison: 04/20/2018 Findings: Unremarkable cardiomediastinal silhouette and rogelio. No lobar consolidation, pleural effusion or pneumothorax. Grossly intact osseous structures. Impression: Unremarkable radiographic appearance of the chest. Electronically signed by: JOSE A MALHOTRA MD (05/23/2020 6:18 PM) [id number]
--- NOTE | 2020-05-27 11:45 | NUR ---
IP: notified patient of COVID result.
== END 2020-05-23 18:43 | disposition home or self-care (01) ==
LOC: ER 17:13
DX: J02.9 Acute pharyngitis, unspecified (principal); R05 Cough; J45.909 Unspecified asthma, uncomplicated; F17.210 Nicotine dependence, cigarettes, uncomplicated; Z20.828 Contact with and (suspected) exposure to other viral communicable diseases
CPT/HCPCS: 71045; 87070; 87880; 99284; U0003; 87147

== ENCOUNTER 2020-10-10 09:35 | Emergency (ER) | payer SELFPAY ==
[~2020-10-10] VITALS: Ht 167.6 cm; Wt 80.7 kg
[~2020-10-10 09:35] MED LIST changes: +ALBU2.5V8 IH; +BENZ100C PO; -CIPR500T PO; +CIPR500T2 PO; +IBUP-1673 PO
[2020-10-10 10:23] LABS: BASO % 1 % (0-3); EOS # 0.2 x10^3/uL (0.0-0.7); EOS % 5 % (0-3); HEMATOCRIT 46.3 % (39.0-53.0); HEMOGLOBIN 15.3 g/dL (13.0-17.5); LYMPH # 1.7 x10^3/uL (1.0-4.8); LYMPH % 36 % (24-48); MEAN CORPUSCULAR HEMOGLOBIN 31 pg (25-35); MEAN CORPUSCULAR HGB CONC 33 g/dL (31-37); MEAN CORPUSCULAR VOLUME 95 fL (79-100); MONO # 0.4 x10^3/uL (0.0-1.1); MONO % 7 % (0-9); NEUT # 2.4 x10^3uL (1.8-7.7); NEUT % 50 % (31-73); PLATELET COUNT 177 x10^3/uL (140-400); RED BLOOD COUNT 4.86 x10^6/uL (4.30-5.70); RED CELL DISTRIBUTION WIDTH 14.2 % (11.5-14.5); WHITE BLOOD COUNT 4.8 x10^3/uL (4.0-11.0)
--- NOTE | 2020-10-10 10:25 | RAD ---
EXAM: CHEST 1 VIEW History: Chest pain COMPARISON: 05/23/2020. TECHNIQUE: Single portable radiograph of the chest FINDINGS: The cardiac silhouette is unremarkable. The lungs are clear bilaterally. The costophrenic sulci are clear and well demarcated. IMPRESSION: No radiographic evidence of an acute cardiopulmonary process. Electronically signed by: Chong Muse MD (10/10/2020 10:22 AM) [id number]
[2020-10-10 10:31] LABS: CALCIUM 9.2 mg/dL (8.5-10.1); GFR 101.7
[2020-10-10 10:36] LABS: DIRECT BILIRUBIN 0.1 mg/dL (0.0-0.2); TOTAL BILIRUBIN 0.4 mg/dL (0.2-1.0); TOTAL PROTEIN 7.5 g/dL (6.4-8.2)
--- NOTE | 2020-10-10 11:21 | PHYS DOC ---
Past History Past Medical History: Asthma, Seizure Past Surgical History: No Surgical History Smoking: Cigarettes, Less than 1pk/day Alcohol Use: None Drug Use: None General Adult EDM: Chief Complaint: SHORTNESS OF BREATH HPI: HPI: 39-year-old male presenting with chest pain and shortness of breath. His chest pain started 2 to 3 days ago. It was worse today. His pain is a sharp shooting pain which is worse with deep inspiration. He also has pain in his left shoulder. The pain is not radiating to the left shoulder he has 2 separate pains. He has chronic left shoulder pain. His shortness of breath is worse with any coughs. Improved with rest. He denies diaphoresis or nausea. He denies any rashes fevers or chills. Review of systems negative for abdominal pain vomiting diaphoresis fevers chills or rashes. All other review of systems negative. ED course: 39-year-old male presenting with chest pain shortness of breath. EKG shows sinus rhythm with a regular rate. ST segments are congruent. Not suggestive of acute ischemia. Right bundle branch block morphology of the QRS present. Chest x-ray unremarkable. D-dimer within normal limits troponin within normal limits. Patient is feeling better on reexamination. We will discharge him to follow-up with PCP in 1 to 2 days. He is to return for any worsening chest pain or shortness of breath. Allergies: Allergies: Allergies Coded Allergies Type Severity Reaction Last Updated Verified No Known Drug Allergies 11/27/13 No Physical Exam: PE: Constitutional: Well developed, well nourished, no acute distress, non-toxic ap pearance. [] HENT: Normocephalic, atraumatic, bilateral external ears normal, oropharynx moist, no oral exudates, nose normal. [] Eyes: PERRLA, EOMI, conjunctiva normal, no discharge. [] Neck: Normal range of motion, no tenderness, supple, no stridor. [] Cardiovascular:Heart rate regular rhythm, no murmur [] Lungs & Thorax: Bilateral breath sounds clear to auscultation [] Abdomen: Bowel sounds normal, soft, no tenderness, no masses, no pulsatile masses. [] Skin: Warm, dry, no erythema, no rash. [] Back: No tenderness, no CVA tenderness. [] Extremities: No tenderness, no cyanosis, no clubbing, ROM intact, no edema. [] Neurologic: Alert and oriented X 3, normal motor function, normal sensory function, no focal deficits noted. [] Psychologic: Affect normal, judgement normal, mood normal. [] Current Patient Data: Labs: Laboratory Tests Test 10/10/20 10:05 White Blood Count 4.8 x10^3/uL (4.0-11.0) Red Blood Count 4.86 x10^6/uL (4.30-5.70) Hemoglobin 15.3 g/dL (13.0-17.5) Hematocrit 46.3 % (39.0-53.0) Mean Corpuscular Volume 95 fL (79-100) Mean Corpuscular Hemoglobin 31 pg (25-35) Mean Corpuscular Hemoglobin Concent 33 g/dL (31-37) Red Cell Distribution Width 14.2 % (11.5-14.5) Platelet Count 177 x10^3/uL (140-400) Neutrophils (%) (Auto) 50 % (31-73) Lymphocytes (%) (Auto) 36 % (24-48) Monocytes (%) (Auto) 7 % (0-9) Eosinophils (%) (Auto) 5 % (0-3) H Basophils (%) (Auto) 1 % (0-3) Neutrophils # (Auto) 2.4 x10^3uL (1.8-7.7) Lymphocytes # (Auto) 1.7 x10^3/uL (1.0-4.8) Monocytes # (Auto) 0.4 x10^3/uL (0.0-1.1) Eosinophils # (Auto) 0.2 x10^3/uL (0.0-0.7) Basophils # (Auto) 0.0 x10^3/uL (0.0-0.2) Sodium Level 143 mmol/L (136-145) Potassium Level 4.0 mmol/L (3.5-5.1) Chloride Level 106 mmol/L (98-107) Carbon Dioxide Level 28 mmol/L (21-32) Anion Gap 9 (6-14) Blood Urea Nitrogen 10 mg/dL (8-26) Creatinine 1.0 mg/dL (0.7-1.3) Estimated GFR (Cockcroft-Gault) 101.7 Glucose Level 91 mg/dL (70-99) Calcium Level 9.2 mg/dL (8.5-10.1) Total Bilirubin 0.4 mg/dL (0.2-1.0) Direct Bilirubin 0.1 mg/dL (0.0-0.2) Aspartate Amino Transferase (AST) 20 U/L (15-37) Alanine Aminotransferase (ALT) 25 U/L (16-63) Alkaline Phosphatase 86 U/L (46-116) Troponin I Quantitative < 0.017 ng/mL (0-0.055) Total Protein 7.5 g/dL (6.4-8.2) Albumin 4.0 g/dL (3.4-5.0) Lipase 57 U/L (73-393) L Vital Signs: Vital Signs Date Time Temp Pulse Resp B/P (MAP) Pulse Ox O2 Delivery O2 Flow Rate FiO2 10/10/20 09:44 97.8 94 16 128/92 (104) 100 Room Air EKG: EKG: [] Radiology/Procedures: Radiology/Procedures: [] Heart Score: Risk Factors: Risk Factors: DM, Current or recent (<one month) smoker, HTN, HLP, family history of CAD, obesity. Risk Scores: Score 0 - 3: 2.5% MACE over next 6 weeks - Discharge Home Score 4 - 6: 20.3% MACE over next 6 weeks - Admit for Clinical Observation Score 7 - 10: 72.7% MACE over next 6 weeks - Early Invasive Strategies Course & Med Decision Making: Course & Med Decision Making Pertinent Labs and Imaging studies reviewed. (See chart for details) [] Vitaliy Disclaimer: Vitaliy Disclaimer: This electronic medical record was generated, in whole or in part, using a voice recognition dictation system. Departure Departure: Impression: Primary Impression: CHEST PAIN, UNSPECIFIED Additional Impression: SHORTNESS OF BREATH Disposition: 01 DC HOME SELF CARE/HOMELESS Condition: STABLE Referrals: PCP,NO (PCP) Patient Instructions: Chest Pain (Nonspecific) Additional Instructions: EMERGENCY DEPARTMENT GENERAL DISCHARGE INSTRUCTIONS Follow-up with your primary physician in 1 to 2 days. Return to the emergency department if you have any new or concerning findings. Thank you for coming to [facility] emergency department today and trusting us with you care. We trust that you had a positive experience in our Emergency Department. If you wish to speak to the department management, you may call the Director at [phone]. YOUR FOLLOW UP INSTRUCTIONS ARE FOLLOWS: 1. Do you have a private Doctor? If you do not have a private doctor, please ask for a resource list of physicians or clinics that may be able to assist you with follow up care. 2. If a lab test or culture has been done and does not come back immediately, your results will be reviewed and you will be notified if you need a change in treatment. ADDITIONAL INSTRUCTIONS AND INFORMATION: 1. Your care today has been supervised by a physician who is specially trained in emergency care. Many problems require more than one evaluation for a complete diagnosis and treatment. We recommend that you schedule your follow up appointment as recommended to ensure complete treatment of you illness or injury. If you are unable to obtain follow up care and continue to have a problem, or if your condition worsens, we recommend that you return to the ED. 2. We are not able to safely determine your condition over the phone nor are we able to give sound medical advice over the phone. For these safety reasons, if you call for medical advice we will ask you to come to the ED for further evaluation. 3. If you have any questions regarding these discharge instructions please call the ED at [phone]. SAFETY INFORMATION: In the interest of safety, wellness, and injury prevention; we encourage you to wear your sealbelt, if you smoke; quite smoking, and we encourage family to use a protective helmet for bicycling and other sporting events that present an increased risk for head injury. IF YOUR SYMPTOMS WORSEN OR NEW SYMPTOMS DEVELOP, OR YOU HAVE CONCERNS ABOUT YOUR CONDITION; OR IF YOUR CONDITION WORSENS WHILE YOU ARE WAITING FOR YOUR FOLLOW UP APPOINTMENT; EITHER CONTACT YOUR PRIMARY CARE DOCTOR, THE PHYSICIAN WHOSE NAME AND NUMBER YOU WERE GIVEN, OR RETURN TO THE ED IMMEDIATELY. This condition should be evaluated by your primary care physician and any necessary consulting services for continued management within a few days (1-2) after discharge. Return to the emergency department if you have any new or concerning symptoms including but not limited to fever, chills, nausea, vomiting, intractable pain, any new rashes, chest pain, shortness of breath, uncontrolled bleeding, difficulty breathing, and/or vision loss. SHAWN BROOKS MD Oct 10, 2020 11:21
--- NOTE | 2020-10-10 11:43 | EKG ---
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
[2020-10-10 11:51] VITALS: BP 126/89
== END 2020-10-10 12:00 | disposition home or self-care (01) ==
LOC: ER 09:35
DX: R07.89 Other chest pain (principal); R06.02 Shortness of breath; M25.512 Pain in left shoulder; J45.909 Unspecified asthma, uncomplicated; F17.210 Nicotine dependence, cigarettes, uncomplicated
CPT/HCPCS: 36415; 71045; 80048; 80076; 83690; 84484; 85025; 85379; 93005; 99285

== ENCOUNTER 2020-12-24 10:29 | Emergency (ER) | payer SELFPAY ==
[~2020-12-24] VITALS: Ht 167.6 cm; Wt 80.7 kg
[2020-12-24 10:39] VITALS: BP 108/86
== END 2020-12-24 12:21 | disposition home or self-care (01) ==
LOC: ER 10:29
DX: M79.671 Pain in right foot (principal); J45.909 Unspecified asthma, uncomplicated; F17.210 Nicotine dependence, cigarettes, uncomplicated
CPT/HCPCS: 73630; 96372; 99284; J1885

== ENCOUNTER 2021-06-26 08:38 | Emergency (ER) | payer SELFPAY ==
[~2021-06-26] VITALS: Ht 167.6 cm; Wt 80.7 kg
[~2021-06-26 08:38] MED LIST changes: -CYCL-331 PO; +CYCL10TA19 PO
[2021-06-26] MEDS ORDERED: ACETAMINOPHEN 500 MG TABLET PO ONE (09:30)
--- NOTE | 2021-06-26 09:33 | PHYS DOC ---
Past History Past Medical History: Asthma, Seizure Past Surgical History: No Surgical History Smoking: Cigarettes, Less than 1pk/day Alcohol Use: None Drug Use: None General Adult EDM: Chief Complaint: FEVER HPI: HPI: 40-year-old male presents with fever, chills, body aches, fatigue. He started feeling bad yesterday. He has been having intermittent fever up to 101 and chills since that time. He decided it was not going away so he came into the ER. He is not vaccinated against COVID-19. He has had a cough. On arrival his temperature was 101.8. Review of Systems: Review of Systems: Constitutional: Fever, chills, body aches, fatigue Eyes: Denies change in visual acuity HENT: Denies nasal congestion or sore throat Respiratory: Cough without shortness of breath Cardiovascular: Denies chest pain or edema GI: Denies abdominal pain, nausea, vomiting, bloody stools or diarrhea : Denies dysuria Musculoskeletal: Denies back pain or joint pain Integument: Denies rash Neurologic: Denies headache, focal weakness or sensory changes Endocrine: Denies polyuria or polydipsia Lymphatic: Denies swollen glands Psychiatric: Denies depression or anxiety Allergies: Allergies: Allergies Coded Allergies Type Severity Reaction Last Updated Verified No Known Drug Allergies 11/27/13 No Physical Exam: PE: Constitutional: Well developed, well nourished, no acute distress, non-toxic ap pearance. [] HENT: Normocephalic, atraumatic, bilateral external ears normal, oropharynx moist, no oral exudates, nose normal. Right tympanic membrane blocked by cerumen.[] Eyes: PERRLA, EOMI, conjunctiva normal, no discharge. [] Neck: Normal range of motion, no tenderness, supple, no stridor. [] Cardiovascular: Heart rate regular rhythm, no murmur [] Lungs & Thorax: Bilateral breath sounds clear to auscultation [] Abdomen: Bowel sounds normal, soft, no tenderness, no masses, no pulsatile masses. [] Skin: Warm, dry, no erythema, no rash. [] Back: No tenderness, no CVA tenderness. [] Extremities: No tenderness, no cyanosis, no clubbing, ROM intact, no edema. [] Neurologic: Alert and oriented X 3, normal motor function, normal sensory function, no focal deficits noted. [] Psychologic: Affect normal, judgement normal, mood normal. [] Current Patient Data: Vital Signs: Vital Signs Date Time Temp Pulse Resp B/P (MAP) Pulse Ox O2 Delivery O2 Flow Rate FiO2 06/26/21 09:00 101.8 122 16 125/85 (98) 98 Room Air EKG: EKG: [] Radiology/Procedures: Radiology/Procedures: [] Impressions: XR CHEST 1V CLINICAL INDICATIONS: Reason: fever, cough / Spl. Instructions: / History: COMPARISON: October 10, 2020. Findings: No acute lung infiltrate or pleural effusion or pulmonary edema or l carter mass or pneumothorax is seen. The heart size, pulmonary vasculature, mediastinum and both rogelio are unremarkable. IMPRESSION: No acute radiographic abnormality is seen. Electronically signed by: Eric Mcwilliams MD (06/26/2021 9:41 AM) [id number] DICTATED AND SIGNED BY: ERIC MCWILLIAMS MD DATE: 06/26/21939 CC: RADHA GU DO; PCP,KRANTHI ~MTH0 0 Heart Score: C/O Chest Pain: N/A Risk Factors: Risk Factors: DM, Current or recent (<one month) smoker, HTN, HLP, family history of CAD, obesity. Risk Scores: Score 0 - 3: 2.5% MACE over next 6 weeks - Discharge Home Score 4 - 6: 20.3% MACE over next 6 weeks - Admit for Clinical Observation Score 7 - 10: 72.7% MACE over next 6 weeks - Early Invasive Strategies Course & Med Decision Making: Course & Med Decision Making Pertinent Labs and Imaging studies reviewed. (See chart for details) The patient's labs are unremarkable. His chest x-ray is negative for acute findings. I have treated the patient with a gram of Tylenol and a liter of normal saline. His rapid influenza is negative. I am suspicious of COVID-19. I will treat him with Decadron for 3 days. He is stable for discharge at this time. [] Dragon Disclaimer: Dragon Disclaimer: This electronic medical record was generated, in whole or in part, using a voice recognition dictation system. Departure Departure: Impression: Primary Impression: Suspected COVID-19 virus infection Additional Impression: Fever Disposition: HOME / SELF CARE / HOMELESS Condition: STABLE Referrals: PCP,NO (PCP) Additional Instructions: You have been tested for or diagnosed with COVID-19. It is an infection caused by a new type of coronavirus. COVID-19 will cause cold-like or mild flu symptoms in most. It can cause more severe symptoms like problems breathing in some. There is no treatment for COVID-19. The body will clear the infection over time. Self-care will help to ease discomfort. Steps to Take: Self-Care Rest as needed. Healthy habits may help you feel better. Steps include: Choose healthy foods including fruits and vegetables. Drink water throughout the day. Get plenty of sleep each night. If you smoke, try to quit. It may ease breathing. Avoid alcohol. Keep Others Healthy The virus can spread to others. Droplets are released every time you sneeze or cough. The droplets can get into the mouth, nose, or eyes of people near you and lead to infection. To lower the chances of spreading COVID-19 to others: Stay at home until your doctor has said it is safe to leave. If you tested positive this will mean staying isolated until both of the following are true: At least 7 days have passed since the start of illness. You are free of fever for at least 72 hours without the use of medicine. During this time: - Avoid public areas, events, or transportation. Do not return to work or school until your doctor has said it is safe to do so. - Call ahead if you need to go to a medical center. Let them know you may have COVID-19. It will help them guide you where to go. They may also ask you to wear a facemask when you come to the office. - If you call for emergency medical services, let them know you may have COVID- 19. While at home: - Try to avoid close contact with others. Stay about 6 feet away. - If possible, spend most of your time in a separate room from others. - Use a face mask if you will be in close contact with others such as sharing a room or vehicle. - Have someone wipe down common surfaces in the home. Use household road machine operator every day on areas like doorknobs, counters, or sinks. - Cough or sneeze into a tissue. Throw the tissue away right after use. If a tissue is not available, cough or sneeze into your elbow. - Wash your hands often. Wash them after sneezing or coughing. Use soap and water and wash for at least 20 seconds. Alcohol based hand overhead cleaner can be used if soap and water is not available. - Do not prepare food for others. Avoid sharing personal items like forks, spoons, or toothbrushes. - Avoid close contact with pets while you are sick. There is no evidence of the virus passing to pets. This is a safety step until more is known about this virus. Isolation can be frustrating. Social interaction can help. Keep in touch with friends and family through phone and tech options. You can still interact with others in your home, just keep a safe distance of about 6 feet. Follow-up: Your doctors office will check in with you to see if there are any changes in your health. You may be asked to keep track of symptoms to share with them. They will also let you know when you are clear to be in public again. Problems to Look Out For: Contact your doctor if your recovery is not going as you expect. Get emergency care if you have problems such as: - Trouble breathing - Nonstop chest pain or pressure - Changes in awareness, confusion, or problems waking - Lips or face have bluish color - Worsening of symptoms If you think you have an emergency, call for emergency medical services right away. As taken from [facility] Dexamethasone (Decadron) 4 Mg Tablet 1 TAB PO BID for COVID for 3 Days, #6 TAB 0 Refills Prov: RADHA GU DO 06/26/21 RADHA GU DO Jun 26, 2021 09:33
--- NOTE | 2021-06-26 09:44 | RAD ---
XR CHEST 1V CLINICAL INDICATIONS: Reason: fever, cough / Spl. Instructions: / History: COMPARISON: October 10, 2020. Findings: No acute lung infiltrate or pleural effusion or pulmonary edema or lung mass or pneumothora x is seen. The heart size, pulmonary vasculature, mediastinum and both rogelio are unremarkable. IMPRESSION: No acute radiographic abnormality is seen. Electronically signed by: Jasmeet Mcwilliams MD (06/26/2021 9:41 AM) [id number]
[2021-06-26] MEDS ORDERED: IV NORMAL SALINE 1,000ML 1,000 ML IV ONE (09:45)
[2021-06-26 10:31] LABS: BASO % 1 % (0-3); CALCIUM 8.8 mg/dL (8.5-10.1); CREATININE 1.3 mg/dL (0.7-1.3); EOS # 0.1 x10^3/uL (0.0-0.7); EOS % 1 % (0-3); GFR 74.8; HEMATOCRIT 42.9 % (39.0-53.0); HEMOGLOBIN 14.3 g/dL (13.0-17.5); LYMPH # 0.8 x10^3/uL (1.0-4.8); LYMPH % 16 % (24-48); MEAN CORPUSCULAR HEMOGLOBIN 31 pg (25-35); MEAN CORPUSCULAR HGB CONC 33 g/dL (31-37); MEAN CORPUSCULAR VOLUME 94 fL (79-100); MONO # 0.8 x10^3/uL (0.0-1.1); MONO % 15 % (0-9); NEUT # 3.5 x10^3uL (1.8-7.7); NEUT % 67 % (31-73); PLATELET COUNT 177 x10^3/uL (140-400); POTASSIUM 3.7 mmol/L (3.5-5.1); RED BLOOD COUNT 4.57 x10^6/uL (4.30-5.70); RED CELL DISTRIBUTION WIDTH 14.6 % (11.5-14.5); WHITE BLOOD COUNT 5.2 x10^3/uL (4.0-11.0)
[2021-06-26 10:37] LABS: ALBUMIN/GLOBULIN RATIO 1.1 (1.0-1.7); TOTAL BILIRUBIN 0.5 mg/dL (0.2-1.0); TOTAL PROTEIN 7.5 g/dL (6.4-8.2)
[2021-06-26 11:03] LABS: INFLUENZA A PATIENT NEGATIVE (NEGATIVE); INFLUENZA B PATIENT NEGATIVE (NEGATIVE)
[2021-06-26] MEDS ORDERED: DEXA4TAB63 PO (11:21)
[2021-06-26 11:32] VITALS: BP 123/78
== END 2021-06-26 11:30 | disposition home or self-care (01) ==
LOC: ER 08:38
DX: U07.1 COVID-19 (principal); R50.9 Fever, unspecified; J45.909 Unspecified asthma, uncomplicated; F17.210 Nicotine dependence, cigarettes, uncomplicated
CPT/HCPCS: 36415; 71045; 80053; 83605; 85025; 87804; 96360; 99284; C9803; J7030; U0003